=== PATIENT | female | born 1955 | race African-American/Black ===

== ENCOUNTER 2016-10-07 06:16 | Day surgery (SDC) | payer OTHER ==
[2016-10-05 16:09] VITALS: BMI 32.0
[2016-10-07] MEDS ORDERED: ePHEDrine SULFATE 50 MG/1 ML AMPULE ONE (07:18)
[2016-10-07] MEDS ORDERED: MIDAZOLAM HCL 2 MG/2 ML SINGLE DOSE VIAL ONE (07:19)
[2016-10-07] MEDS ORDERED: PROPOFOL 20 ML ONE ×4 (07:19)
[2016-10-07] MEDS ORDERED: SUCCINYLCHOLINE CHLORIDE 200 MG/10 ML VIAL ONE (07:19)
[2016-10-07] MEDS ORDERED: KETOROLAC TROMETHAMINE 30 MG/1 ML VIAL ONE (07:23)
[2016-10-07] MEDS ORDERED: DEXAMETHASONE SOD PHOSPHATE 4 MG/1 ML VIAL ONE (07:23)
[2016-10-07] MEDS ORDERED: LIDOCAINE HCL/PF 2% SDV 5ML VIAL ONE (07:23)
[2016-10-07] MEDS ORDERED: ceFAZolin SODIUM 1 GM VIAL ONE (07:23)
[2016-10-07] MEDS ORDERED: BUPIVACAINE HCL/PF 0.5% (5MG/ML) 10 ML VIAL ONE (07:35)
[2016-10-07] MEDS ORDERED: ONDANSETRON 4 MG/2 ML VIAL IVPUSH PRN (08:15)
[2016-10-07] MEDS ORDERED: oxyCODONE HCL 5 MG TABLET PO PRN (08:15)
[2016-10-07] MEDS ORDERED: LACTATED RINGERS SOLUTION 1,000 ML IV SCH (08:15)
[2016-10-07] MEDS ORDERED: ACETAMINOPHEN 1000 MG/100 ML VIAL (NON FORMULARY) IVPB PRN (08:15)
[2016-10-07] MEDS ORDERED: BUPIVACAINE HCL/PF 0.5% (5MG/ML) 10 ML VIAL IJ ONE (08:20)
[2016-10-07] MEDS ORDERED: LIDOCAINE HCL 0.5% EPINEPHRINE 1:200,000 50 ML VIAL IJ ONE (08:20)
--- NOTE | 2016-10-07 08:28 | HP ---
[facility] - Chief Complaint Chief Complaint: right knee pain - Past Medical History Allergies/Adverse Reactions: Allergies Allergy/AdvReac Type Severity Reaction Status Date / Time Penicillins Allergy Mild Hives Verified 10/05/16 16:09 - Current Medications Current Medications: Home Medications Medication Instructions Recorded Oxycodone HCl/Acetaminophen 1 - 2 tab PO Q6H #50 tab MDD 8 10/07/16 [Percocet 5-325 mg Tablet -] [facility] Physical Exam - Physical Examination Vital Signs: Vital Signs Period Temp Pulse Resp BP Sys/Jackson Pulse Ox Last 24 Hr 98.4 F 67 20 141/75 100 General Appearance: Well Nourished, Well Developed, Alert & Oriented x3 ENT: Clear Lung: Normal air movement Heart: Regular rate & rhythm Extremities: Other (right knee- + swelling, + ttp, decr rom, + mcmurrays, + apleys, nvi MRI + mmt) Neurological: Intact, Alert, Oriented [facility]ellite Impression/Plan - Impression/Plan Impression: right knee internal derangement Operative Procedure: right knee arthroscopy Date to be Performed: 10/07/16
--- NOTE | 2016-10-07 08:47 | OP ---
Operative Note - Note: Operative Date: 10/07/16 Pre-Operative Diagnosis: internal derangement right knee Operation: arthroscopy right knee with MM and LM and chondroplasty patella Post-Operative Diagnosis: Same as Pre-op Surgeon: Ry Oliver Anesthesia: General Operative Report Dictated: Yes
--- NOTE | 2016-10-07 09:22 | OP ---
DATE OF OPERATION: 10/07/2016 PREOPERATIVE DIAGNOSIS: Internal derangement, right knee. POSTOPERATIVE DIAGNOSIS: Internal derangement, right knee. PROCEDURE: Arthroscopy, right knee partial medial and lateral meniscectomy, chondroplasty of the patella. SURGICAL ATTENDING: Ry Oliver MD ANESTHESIA: General with LMA. CLOSURE: 4-0 nylon. COMPLICATIONS: None. CONDITION: Recovery in stable condition. DESCRIPTION OF OPERATIVE PROCEDURE: Patient taken to the operating room on October 07, 2016. General anesthesia with LMA was administered by the anesthesiologist. Right lower extremity was prepped and draped in the usual sterile fashion. A supralateral and medial lateral infrapatellar portal sites were infiltrated with 1% Xylocaine with epinephrine. Supralateral portal was made with a 15 blade, followed by blunt trocar. The knee was aspirated which revealed about 20 mL of joint fluid, was inflated with a cocktail of 10 mL of 1% Xylocaine and 10 mL of 0.5% Marcaine and 20 mL of arthroscopic saline. Medial and lateral infrapatellar portals were then made with a 15 blade, followed by blunt trocar. The scope was placed in the lateral infrapatellar portal and up into the suprapatellar pouch. Pouch was visualized to be clean. The medial and lateral gutters were visualized to be clean. The undersurface of the patella had "crab meat" which was debrided using the shaver. The trochlea was basically intact. With valgus stress on the knee, the medial compartment was entered. Medial meniscus was visualized and probed, found to have a flap tear of the posterior horn. This was debrided back to smooth and stable meniscal tissue using a meniscal biter and arthroscopic shaver. The medial femoral condyle was run and found to have some diffuse, grade 2 changes, was left in situ. The medial tibial plateau was found to be intact. At 90 degrees, the ACL and PCL was visualized and probed, found to be intact. In the figure four position, the lateral compartment was entered. Lateral meniscus was visualized and probed, found to have a small flap tear of its posterior horn. This was debrided back to smooth and stable meniscal tissues using a meniscal biter and arthroscopic shaver. The lateral femoral condyle was run and found to be intact as was the lateral tibial plateau. The knee was irrigated with copious amounts of irrigation. The portals were closed with 4-0 nylon. Prior to closure, 20 mL of 0.5% Marcaine was infused through the outflow portal prior to pulling the trocar. Sterile pressure dressing was placed over the knee. Patient was awakened from anesthesia and transferred to recovery room in stable condition. No complications. Estimated blood loss was negligible. Heath [id number]
[2016-10-07 10:18] VITALS: TEMP 98.1
[2016-10-07 14:59] VITALS: BP 142/75; PULSE 73
--- NOTE | 2016-10-10 15:26 | PATH ---
Surgical Pathology Report Patient Name: JESUS MONACO [facility]. Rec. #: [id number] /Age/Gender: 1955 (Age: 60) / F Account: [id number] Location: [facility] SUR[facility] Taken: 10/07/2016 Received: 10/07/2016 Reported: 10/10/2016 Physicians: Ry Oliver M.D. Specimen(s) Received RIGHT KNEE SHAVINGS Clinical History Medial meniscus tear right knee Final Diagnosis KNEE, RIGHT, ARTHROSCOPIC SHAVING: FIBROCARTILAGE WITH MYXOID DEGENERATIVE CHANGES, ALONG WITH PORTIONS OF SYNOVIUM. Electronically Signed Gregg Perry M.D. Gross Description Received in formalin, labeled "right knee shavings" is a 4. 5 x 3.5 x 1.0 cm. aggregate of zaidi-yellow focally soft tissue fragments admixed with clotted blood. A field representative portion is submitted in one cassette. AF/10/07/2016 final/10/07/2016
== END 2016-10-07 13:35 | disposition home or self-care (01) ==
LOC: JASU-SURG 06:16
PROVIDERS: ATTEND Orthopaedic Surgery
PROC: 0SBC4ZZ Excision of Right Knee Joint, Percutaneous Endoscopic Approach (ICD-10-PCS; 2016-10-07)
PROC: 0SBC4ZZ Excision of Right Knee Joint, Percutaneous Endoscopic Approach (ICD-10-PCS; principal; 2016-10-07 08:00)
DX: S83.261A Peripheral tear of lateral meniscus, current injury, right knee, initial encounter (principal); S83.221A Peripheral tear of medial meniscus, current injury, right knee, initial encounter; X58.XXXA Exposure to other specified factors, initial encounter; Y93.9 Activity, unspecified; Y92.9 Unspecified place or not applicable; Y99.9 Unspecified external cause status
CPT/HCPCS: 88304-TC; 94760